=== PATIENT | female | born 1965 | race Caucasian/White ===

== ENCOUNTER 2021-08-28 08:04 | Inpatient (IN) ==
[2021-08-28] MEDS ORDERED: oxyCODONE/Acetamin 5/325 mg TAB PO ONE (08:28)
[2021-08-28] MEDS ORDERED: levETIRAcetam 1000MG IVPREMIX 1,000 MG/100 ML BAG IVPB ONE (09:29)
[2021-08-28 09:31] LABS: ABS Monocytes 0.4 10^3/ul (0-0.8); ABS Neutrophils 7.8 10^3/ul (1.5-7.7); Eosinophil % 0.3 %; Hematocrit 41 % (35-47); Hemoglobin 14.1 g/dL (12.0-16.0); Lymphocyte % 10.4 %; Mean Corpuscular HGB Conc 34 g/dL (31-36); Mean Corpuscular Hemoglobin 30 pg (27-31); Mean Corpuscular Volume 87 fL (80-97); Mean Platelet Volume 8.2 fL (7.4-10.4); Platelet Count 203 10^3/uL (150-450); Red Blood Count 4.74 10^6 /uL (3.70-4.87); Red Cell Distribution Width 14 % (10-15); White Blood Count 9.2 10^3/uL (3.5-10.8)
[2021-08-28 09:39] LABS: Activated Partial Thrombo Time 33.8 seconds (26.0-38.0); INR 1.01 (0.86-1.15)
[2021-08-28 10:11] LABS: Albumin 4.5 g/dL (3.2-5.2); Albumin/Globulin Ratio 1.6 (1-3); Calcium 9.5 mg/dL (8.6-10.3); Globulin 2.8 g/dL (2-4); Potassium 4.1 mmol/L (3.5-5.0); Total Bilirubin 0.6 mg/dL (0.2-1.0); Total Protein 7.3 g/dL (6.4-8.9); eGFR CKD-EPI 105.9 (>60)
[2021-08-28 10:51] LABS: High Sens Troponin Baseline 6 pg/mL (<15)
[2021-08-28 11:27] LABS: High Sensitivity Troponin 1 Hr 4 pg/mL (<15)
[2021-08-28] MEDS ORDERED: hydrALAZINE 20 mg/ml 1 ML Vial IV IV SLOW PU PRN (11:33)
[2021-08-28] MEDS: oxyCODONE/Acetamin 5/325 mg TAB PO PRN (20:49)
[2021-08-28] MEDS: levETIRAcetam 500 MG IVPREMIX 500 MG/100 ML BAG IV SCH (20:54)
[2021-08-29] MEDS: oxyCODONE/Acetamin 5/325 mg TAB PO PRN ×4 (02:14→21:05)
[2021-08-29 05:09] LABS: ABS Eosinophils 0.1 10^3/ul (0-0.6); ABS Lymphocytes 1.2 10^3/ul (1.0-4.8); ABS Monocytes 0.3 10^3/ul (0-0.8); ABS Neutrophils 3.4 10^3/ul (1.5-7.7); Eosinophil % 1.5 %; Hematocrit 37 % (35-47); Hemoglobin 12.4 g/dL (12.0-16.0); Mean Corpuscular HGB Conc 33 g/dL (31-36); Mean Corpuscular Hemoglobin 29 pg (27-31); Mean Corpuscular Volume 87 fL (80-97); Mean Platelet Volume 8.2 fL (7.4-10.4); Nucleated Red Blood Cells % 0.1; Platelet Count 173 10^3/uL (150-450); Red Blood Count 4.28 10^6 /uL (3.70-4.87); Red Cell Distribution Width 14 % (10-15); White Blood Count 5.1 10^3/uL (3.5-10.8)
[2021-08-29 05:48] LABS: eGFR CKD-EPI 104.6 (>60)
[2021-08-29 06:02] LABS: Potassium 5.1 mmol/L (3.5-5.0)
[2021-08-29] MEDS: levETIRAcetam 500 MG IVPREMIX 500 MG/100 ML BAG IV SCH ×2 (09:11→21:16)
[2021-08-29] MEDS ORDERED: Ondansetron 4 mg VIAL 2 MG/ML 2 ml VIAL ONE (18:05)
[2021-08-29] MEDS: Ondansetron 4 mg VIAL 2 MG/ML 2 ml VIAL IV PRN (18:12)
[2021-08-30] MEDS: oxyCODONE/Acetamin 5/325 mg TAB PO PRN ×3 (03:24→15:35)
[2021-08-30 06:22] LABS: Calcium 9.3 mg/dL (8.6-10.3); Potassium 4.5 mmol/L (3.5-5.0); eGFR CKD-EPI 105.1 (>60)
[2021-08-30] MEDS: Ondansetron 4 mg VIAL 2 MG/ML 2 ml VIAL IV PRN ×2 (07:48→16:36)
[2021-08-30] MEDS: levETIRAcetam 500 MG IVPREMIX 500 MG/100 ML BAG IV SCH (08:34)
[2021-08-30 16:40] VITALS: BP 118/74
== END 2021-08-30 16:55 | disposition home or self-care (01) | DRG 55 ==
LOC: ED 08:04 → EDHOLD 11:25 → ICU 14:22 → SSU 08-29 14:59
PROVIDERS: ADMIT Internal Medicine; ATTEND Hospitalist